=== PATIENT | female | born 1930 | race Caucasian/White ===

== ENCOUNTER → 2016-08-07 | Outpatient (CLI) | payer OTHER ==
[2016-08-07 12:04] LABS: Basophils # (auto) 0 uL; Basophils % (auto) 0.3 % (0.0-2.0); Eosinophils # (auto) 0.4 uL; Eosinophils % (auto) 4.6 % (0.0-7.0); Hematocrit 43.9 % (36.0-46.0); Hemoglobin 14.7 g/dL (12.2-16.2); Lymphocytes # (auto) 2.2 uL; Lymphocytes % (auto) 25.8 % (10.0-50.0); Mean Corpuscular Hemoglobin 31.8 pg (28.0-32.0); Mean Corpuscular Hgb Conc. 33.5 g/dL (32.0-36.0); Mean Corpuscular Volume 94.8 fL (80.0-100.0); Mean Platelet Volume 8.2 fL (7.4-10.4); Monocytes # (auto) 0.7 uL; Monocytes % (auto) 8.1 % (0.0-12.0); Neutrophils # (auto) 5.2 uL; Neutrophils % (auto) 61.2 % (37.0-80.0); Platelet Count (auto) 323 10^3/uL (140-450); Red Cell Distribution Width 12.6 % (11.6-16.0); White Blood Cell 8.4 10^3/uL (4.4-10.8)
[2016-08-07 12:39] LABS: Albumin 3.8 g/dL (3.4-5.0); BUN/Creatinine Ratio 14.7; Bilirubin, Total 0.5 mg/dL (0.2-1.0); Calcium 9.3 mg/dL (8.5-10.1); Total Protein 7.8 g/dL (6.4-8.2)
== END | disposition home or self-care (01) ==
LOC: LAB 11:40
PROVIDERS: ATTEND Internal Medicine
DX: Z12.10 Encounter for screening for malignant neoplasm of intestinal tract, unspecified (principal); Z00.00 Encounter for general adult medical examination without abnormal findings; E78.4 Other hyperlipidemia; I10 Essential (primary) hypertension
CPT/HCPCS: 36415; 80053; 80061; 82043; 82306; 83036; 84443; 85025

== ENCOUNTER → 2016-08-15 | Outpatient (CLI) | payer OTHER | END | disposition home or self-care (01) | LOC: LAB 14:33 | PROVIDERS: ATTEND Internal Medicine | DX: Z12.11 Encounter for screening for malignant neoplasm of colon (principal); I10 Essential (primary) hypertension; E11.9 Type 2 diabetes mellitus without complications; J44.9 Chronic obstructive pulmonary disease, unspecified | CPT/HCPCS: 82270 ==

== ENCOUNTER → 2016-11-14 | Outpatient (CLI) | payer OTHER | END | disposition home or self-care (01) | LOC: LAB 14:04 | PROVIDERS: ATTEND Internal Medicine | DX: F11.90 Opioid use, unspecified, uncomplicated (principal); E03.9 Hypothyroidism, unspecified; E55.9 Vitamin D deficiency, unspecified | CPT/HCPCS: 36415; 80307; 82306; 84439; 84443 ==

== ENCOUNTER → 2017-10-03 | Outpatient (CLI) | payer OTHER ==
[2017-10-03 16:22] LABS: Alcohol, Urine < 3.0 mg/dL (0-5); Amphetamine Screen, Urine NEGATIVE (NEGATIVE); Barbiturate Scree,Urine NEGATIVE (NEGATIVE); Benzodiazephine Screen, Urine NEGATIVE (NEGATIVE); Cannabinoid Screen, Urine NEGATIVE (NEGATIVE); Cocaine Screen, Urine NEGATIVE (NEGATIVE); Opiate Scree,Urine POSITIVE (NEGATIVE); Phencyclidine Screen, Urine NEGATIVE (NEGATIVE)
== END | disposition home or self-care (01) ==
LOC: LAB 14:54
PROVIDERS: ATTEND Anesthesiology Pain Medicine
DX: F11.90 Opioid use, unspecified, uncomplicated (principal)
CPT/HCPCS: 80307

== ENCOUNTER → 2017-11-11 | Outpatient (CLI) | payer OTHER ==
[2017-11-11 12:25] LABS: Basophils # (auto) 0 uL; Basophils % (auto) 0.6 % (0.0-2.0); Eosinophils # (auto) 0.3 uL; Eosinophils % (auto) 3.3 % (0.0-7.0); Hematocrit 42.9 % (36.0-46.0); Hemoglobin 14.6 g/dL (12.2-16.2); Lymphocytes # (auto) 2.2 uL; Lymphocytes % (auto) 25.9 % (10.0-50.0); Mean Corpuscular Hemoglobin 32.1 pg (28.0-32.0); Mean Corpuscular Volume 94.3 fL (80.0-100.0); Monocytes # (auto) 0.6 uL; Monocytes % (auto) 7.7 % (0.0-12.0); Neutrophils # (auto) 5.2 uL; Neutrophils % (auto) 62.5 % (37.0-80.0); Nucleated Red Blood Cells % 0.1 %; Platelet Count (auto) 227 10^3/uL (140-450); Red Blood Cells 4.55 10^6/uL (4.0-5.20); Red Cell Distribution Width 12.8 % (11.8-14.3); White Blood Cell 8.4 10^3/uL (4.4-10.8)
[2017-11-11 13:26] LABS: Albumin 3.6 g/dL (3.4-5.0); Bilirubin, Total 0.9 mg/dL (0.2-1.0); Calcium 9.5 mg/dL (8.5-10.1); Potassium 4.7 mmol/L (3.5-5.1); Total Protein 7.4 g/dL (6.4-8.2)
== END | disposition home or self-care (01) ==
LOC: LAB 11:44
PROVIDERS: ATTEND Internal Medicine
DX: Z12.11 Encounter for screening for malignant neoplasm of colon (principal); E11.22 Type 2 diabetes mellitus with diabetic chronic kidney disease; I12.9 Hypertensive chronic kidney disease with stage 1 through stage 4 chronic kidney disease, or unspecified chronic kidney disease; N18.9 Chronic kidney disease, unspecified; E78.5 Hyperlipidemia, unspecified; E03.9 Hypothyroidism, unspecified; J44.9 Chronic obstructive pulmonary disease, unspecified; Z79.891 Long term (current) use of opiate analgesic
CPT/HCPCS: 36415; 80053; 80061; 82043; 82270; 82306; 83036; 84443; 85025

== ENCOUNTER → 2018-03-26 | Outpatient (CLI) | payer OTHER ==
[2018-03-26 13:28] LABS: Albumin 3.8 g/dL (3.4-5.0); BUN/Creatinine Ratio 15.8; Calcium 9.5 mg/dL (8.5-10.1); Potassium 4.6 mmol/L (3.5-5.1)
[2018-03-26 13:34] LABS: Bilirubin, Total 0.7 mg/dL (0.2-1.0); Total Protein 7.9 g/dL (6.4-8.2)
== END | disposition home or self-care (01) ==
LOC: LAB 11:27
PROVIDERS: ATTEND Internal Medicine
DX: Z12.11 Encounter for screening for malignant neoplasm of colon (principal); E78.5 Hyperlipidemia, unspecified
CPT/HCPCS: 36415; 80053; 80061; 83036

== ENCOUNTER → 2019-01-02 | Outpatient (CLI) | payer OTHER ==
[2019-01-02 12:36] LABS: Basophils # (auto) 0.1 uL; Basophils % (auto) 0.6 % (0.0-2.0); Eosinophils # (auto) 0.8 uL; Eosinophils % (auto) 9.6 % (0.0-7.0); Hematocrit 38.9 % (36.0-46.0); Hemoglobin 13.5 g/dL (12.2-16.2); Lymphocytes # (auto) 2.4 uL; Lymphocytes % (auto) 29.7 % (10.0-50.0); Mean Corpuscular Hemoglobin 32.6 pg (28.0-32.0); Mean Corpuscular Hgb Conc. 34.6 g/dL (32.0-36.0); Mean Corpuscular Volume 94.5 fL (80.0-100.0); Monocytes # (auto) 0.9 uL; Monocytes % (auto) 11.2 % (0.0-12.0); Neutrophils % (auto) 48.9 % (37.0-80.0); Nucleated Red Blood Cells % 0.1 %; Platelet Count (auto) 257 10^3/uL (140-450); Red Blood Cells 4.12 10^6/uL (4.0-5.20); White Blood Cell 8.1 10^3/uL (4.4-10.8)
[2019-01-02 13:19] LABS: Potassium 3.8 mmol/L (3.5-5.1)
[2019-01-02 13:30] LABS: Albumin 3.5 g/dL (3.4-5.0); BUN/Creatinine Ratio 13.9; Bilirubin, Total 0.8 mg/dL (0.2-1.0); Calcium 9.1 mg/dL (8.5-10.1); Total Protein 7.1 g/dL (6.4-8.2)
== END | disposition home or self-care (01) ==
LOC: LAB 11:52
PROVIDERS: ATTEND Internal Medicine
DX: Z12.11 Encounter for screening for malignant neoplasm of colon (principal); I12.9 Hypertensive chronic kidney disease with stage 1 through stage 4 chronic kidney disease, or unspecified chronic kidney disease; E11.22 Type 2 diabetes mellitus with diabetic chronic kidney disease; N18.9 Chronic kidney disease, unspecified; E78.5 Hyperlipidemia, unspecified
CPT/HCPCS: 36415; 80053; 80061; 82043; 82274; 82306; 83036; 84443; 85025

== ENCOUNTER → 2019-01-13 | Outpatient (CLI) | payer OTHER ==
[2019-01-13 18:33] LABS: Free T4 (Free Thyroxine) 1.07 ng/dL (0.89-1.76); T3 Total 0.79 ng/mL (0.60-1.81)
[2019-01-13 18:34] LABS: Free T3 2.37 pg/mL (2.3-4.2)
== END | disposition home or self-care (01) ==
LOC: LAB 14:31
PROVIDERS: ATTEND Internal Medicine
DX: E03.9 Hypothyroidism, unspecified (principal)
CPT/HCPCS: 84439; 84480; 84481

== ENCOUNTER 2020-09-20 12:50 | Inpatient (IN) | payer OTHER ==
[~2020-09-20] VITALS: Ht 149.9 cm; Wt 76.2 kg
[2020-09-20] MEDS ORDERED: ASPirin 81 mg TAB PO ONE (13:00)
[2020-09-20 14:00] LABS: Basophils # (auto) 0 10 ^3/uL (0-0.2); Basophils % (auto) 0.3 % (0.0-2.0); Eosinophils # (auto) 0.4 10 ^3/uL (0-0.8); Eosinophils % (auto) 3.2 % (0.0-7.0); Hematocrit 42.7 % (36.0-46.0); Hemoglobin 14.5 g/dL (12.2-16.2); Lymphocytes % (auto) 16.4 % (10.0-50.0); Mean Corpuscular Hemoglobin 31.6 pg (28.0-32.0); Mean Corpuscular Volume 92.9 fL (80.0-100.0); Monocytes # (auto) 1.1 10 ^3/uL (0-1.3); Monocytes % (auto) 9.5 % (0.0-12.0); Neutrophils # (auto) 8.4 10 ^3/uL (1.6-8.6); Neutrophils % (auto) 70.6 % (37.0-80.0); Nucleated Red Blood Cells % 0.2 %; Red Cell Distribution Width 12.9 % (11.8-14.3); White Blood Cell 11.9 10^3/uL (4.4-10.8)
[2020-09-20 14:14] LABS: Albumin 3.8 g/dL (3.4-5.0); Anion Gap 10 (5-15); Blood Urea Nitrogen 14 mg/dL (7-18); Calcium 9.3 mg/dL (8.5-10.1); Carbon Dioxide 26 mmol/L (21-32); Chloride 100 mmol/L (98-107); Glucose 146 mg/dL (74-106); Potassium 3.6 mmol/L (3.5-5.1); Sodium 136 mmol/L (136-145)
[2020-09-20 14:16] LABS: Alanine Aminotransferase 12 U/L (13-56); Aspartate Aminotransferase 18 U/L (15-37); BUN/Creatinine Ratio 15.9; GFR African American 78 mL/min; GFR Non-African American 65 mL/min; INR 1.06 (0.9-1.15); Partial Thromboplastin Time 26.8 sec (23.0-31.2)
[2020-09-20 14:20] LABS: Alkaline Phosphatase 95 U/L (45-117); Bilirubin, Total 0.9 mg/dL (0.2-1.0); Total Protein 7.9 g/dL (6.4-8.2)
[2020-09-20] MEDS ORDERED: hydrALAZINE HCL 20 MG/ML VL IV PRN (16:00)
[2020-09-20] MEDS ORDERED: ACETAMINOPHEN 500 MG TAB PO PRN (16:00)
[2020-09-20] MEDS ORDERED: NITROGLYCERIN 0.4 MG SL TAB SL PRN (16:00)
[2020-09-20] MEDS ORDERED: KETOROLAC TROMETH 30 MG/ML 1ML VIAL IV ONE (16:00)
[2020-09-20] MEDS ORDERED: HYDROcodone-ACET 5/325MG TAB PO PRN (16:00)
[2020-09-20] MEDS ORDERED: ONDANSETRON HCL 4 MG/2 ML VIAL IV PRN (16:00)
[2020-09-20] MEDS ORDERED: MORPHINE SULFATE INJECTION 2 MG/ML SYRG IV PRN ×2 (16:00)
[2020-09-20 16:02] LABS: Urine Bacteria FEW /hpf (None Seen); Urine Blood Negative /uL (Negative); Urine WBC 1 /hpf (0 - 5)
[2020-09-20 21:10] VITALS: BP 164/75
[2020-09-20 21:30] VITALS: BP 164/75
[2020-09-20] MEDS: METOPROLOL TARTRATE 25 MG TAB PO SCH (22:00)
[2020-09-21 05:05] VITALS: BP 172/76
[2020-09-21] MEDS ORDERED: LEVO100C3 PO (07:18)
[2020-09-21] MEDS ORDERED: LOSA-39 PO ×2 (07:18)
[2020-09-21] MEDS ORDERED: LEVO88TA4 PO (07:18)
[2020-09-21] MEDS ORDERED: CHOL50007 PO (07:18)
[2020-09-21 08:00] VITALS: BP 158/83
[2020-09-21] MEDS ORDERED: ADENOSINE 64 MG in GIVE UN-DILUTED 0 ML IV STA (08:22)
[2020-09-21 09:00] VITALS: BP 158/83
[2020-09-21] MEDS ORDERED: FAMOTIDINE 20 MG TAB PO SCH (10:00)
[2020-09-21] MEDS ORDERED: ASPirin-EC 81 mg tab PO SCH (10:00)
[2020-09-21] MEDS ORDERED: LISINOPRIL 10 MG TAB PO SCH (10:00)
[2020-09-21] MEDS: METOPROLOL TARTRATE 25 MG TAB PO SCH (12:12)
[2020-09-21 13:00] VITALS: BP 156/72
[2020-09-21 13:01] LABS: Cholesterol 111 mg/dL (< 200); HDL Cholesterol 55 mg/dL (40-59); LDL Cholesterol 45 mg/dL (< 100); Triglycerides 100 mg/dL (< 150)
[2020-09-21] MEDS ORDERED: HYDR25TA5 PO (13:42)
[2020-09-21] MEDS ORDERED: MET50T PO (13:42)
[2020-09-21] MEDS ORDERED: AML5T PO (13:42)
[2020-09-21 16:57] VITALS: BP 144/66
[2020-09-21 17:29] VITALS: BP 149/86
== END 2020-09-21 21:27 | disposition home or self-care (01) | DRG 305 ==
LOC: ER 12:50 → TELE 15:53 → TELE-WESTW 20:53
PROVIDERS: ADMIT Nurse Practitioner Acute Care; ATTEND Internal Medicine
DX: I16.9 Hypertensive crisis, unspecified (principal); I24.9 Acute ischemic heart disease, unspecified; E66.9 Obesity, unspecified; D72.829 Elevated white blood cell count, unspecified; E03.9 Hypothyroidism, unspecified; E78.5 Hyperlipidemia, unspecified; I10 Essential (primary) hypertension; Z20.822 Contact with and (suspected) exposure to COVID-19; M25.569 Pain in unspecified knee; G89.29 Other chronic pain; Z90.49 Acquired absence of other specified parts of digestive tract; Z82.3 Family history of stroke; Z79.899 Other long term (current) drug therapy
CPT/HCPCS: 36415; 71045; 71250; 78452; 80053; 80061; 81001; 82533; 83036; 83735; 83880; 84443; 84484; 85025; 85379; 85610; 85730; 86141; 87426; 93005; 93017; 93306; 93976; 96374; G0378; J0153; J1885

== ENCOUNTER 2020-10-10 16:44 | Emergency (ER) | payer OTHER ==
[~2020-10-10] VITALS: Ht 152.4 cm; Wt 86.2 kg
[~2020-10-10 16:44] MED LIST: AML5T PO; CHOL50007 PO; HYDR25TA5 PO; LEVO100C3 PO; LEVO88TA4 PO; LOSA-39 PO; MET50T PO
[2020-10-10] MEDS ORDERED: SODIUM CHLORIDE 0.9% 500 ML IVB ONE (17:30)
[2020-10-10 18:54] LABS: Basophils # (auto) 0.1 10 ^3/uL (0-0.2); Basophils % (auto) 0.4 % (0.0-2.0); Eosinophils # (auto) 0.3 10 ^3/uL (0-0.8); Eosinophils % (auto) 2.4 % (0.0-7.0); Lymphocytes # (auto) 1.9 10 ^3/uL (0.4-5.4); Lymphocytes % (auto) 14.8 % (10.0-50.0); Mean Corpuscular Hemoglobin 31.8 pg (28.0-32.0); Mean Corpuscular Hgb Conc. 34.7 g/dL (32.0-36.0); Mean Corpuscular Volume 91.6 fL (80.0-100.0); Monocytes # (auto) 0.9 10 ^3/uL (0-1.3); Monocytes % (auto) 6.8 % (0.0-12.0); Neutrophils # (auto) 9.8 10 ^3/uL (1.6-8.6); Neutrophils % (auto) 75.6 % (37.0-80.0); Nucleated Red Blood Cells % 0.2 %; Platelet Count (auto) 297 10^3/uL (140-450); Red Blood Cells 5.03 10^6/uL (4.0-5.20); Red Cell Distribution Width 12.9 % (11.8-14.3); White Blood Cell 12.9 10^3/uL (4.4-10.8)
[2020-10-10 19:07] LABS: Albumin 4.2 g/dL (3.4-5.0); Anion Gap 11 (5-15); Blood Urea Nitrogen 21 mg/dL (7-18); Calcium 9.8 mg/dL (8.5-10.1); Carbon Dioxide 25 mmol/L (21-32); Chloride 93 mmol/L (98-107); Glucose 169 mg/dL (74-106); Magnesium 2.1 mg/dL (1.6-2.6); Potassium 3.6 mmol/L (3.5-5.1); Sodium 129 mmol/L (136-145)
[2020-10-10 19:15] LABS: Alanine Aminotransferase 21 U/L (13-56); Alkaline Phosphatase 117 U/L (45-117); Aspartate Aminotransferase 20 U/L (15-37); BUN/Creatinine Ratio 19.3; Bilirubin, Total 0.9 mg/dL (0.2-1.0); GFR African American 61 mL/min; GFR Non-African American 50 mL/min; Total Protein 8.7 g/dL (6.4-8.2)
[2020-10-10 20:27] LABS: Urine Bacteria FEW /hpf (None Seen); Urine Blood Negative /uL (Negative); Urine Mucus FEW (None Seen); Urine Specific Gravity 1.018 (1.001-1.035); Urine WBC 2 /hpf (0 - 5)
[2020-10-10 20:49] LABS: Alcohol, Urine < 3.0 mg/dL (0-10); Amphetamine Screen, Urine NEGATIVE (NEGATIVE); Barbiturate Scree,Urine NEGATIVE (NEGATIVE); Benzodiazephine Screen, Urine NEGATIVE (NEGATIVE); Cannabinoid Screen, Urine NEGATIVE (NEGATIVE); Cocaine Screen, Urine NEGATIVE (NEGATIVE); Opiate Scree,Urine POSITIVE (NEGATIVE); Phencyclidine Screen, Urine NEGATIVE (NEGATIVE)
[2020-10-10 21:00] VITALS: BP 147/68
== END 2020-10-10 21:15 | disposition home or self-care (01) ==
LOC: EDBD 16:44 → ER 16:44
DX: N39.0 Urinary tract infection, site not specified (principal); R55 Syncope and collapse; R41.0 Disorientation, unspecified; E03.9 Hypothyroidism, unspecified; I10 Essential (primary) hypertension; E78.5 Hyperlipidemia, unspecified; Z79.899 Other long term (current) drug therapy; Z90.49 Acquired absence of other specified parts of digestive tract; Z98.890 Other specified postprocedural states
CPT/HCPCS: 36415; 70450; 71045; 80053; 80307; 81001; 83735; 84484; 85025; 93005; 96360; 96361

== ENCOUNTER 2020-10-15 01:50 | Inpatient (IN) | payer OTHER ==
[~2020-10-15] VITALS: Ht 152.4 cm; Wt 76.6 kg
[2020-10-15 03:27] LABS: Albumin 3.9 g/dL (3.4-5.0); Anion Gap 13 (5-15); BUN/Creatinine Ratio 21.8; Blood Urea Nitrogen 19 mg/dL (7-18); Calcium 8.9 mg/dL (8.5-10.1); Carbon Dioxide 24 mmol/L (21-32); Chloride 80 mmol/L (98-107); GFR African American 79 mL/min; GFR Non-African American 65 mL/min; Glucose 163 mg/dL (74-106); Magnesium 1.6 mg/dL (1.6-2.6); Potassium 3.1 mmol/L (3.5-5.1)
[2020-10-15 03:30] LABS: Lactic Acid w/Reflex 2.4 mmol/L (0.4-2.0)
[2020-10-15 03:32] LABS: Alanine Aminotransferase 19 U/L (13-56); Alkaline Phosphatase 106 U/L (45-117); Aspartate Aminotransferase 21 U/L (15-37)
[2020-10-15 03:38] LABS: Basophils # (auto) 0 10 ^3/uL (0-0.2); Basophils % (auto) 0.2 % (0.0-2.0); Eosinophils # (auto) 0.1 10 ^3/uL (0-0.8); Eosinophils % (auto) 0.5 % (0.0-7.0); Hematocrit 44.9 % (36.0-46.0); Lymphocytes % (auto) 13.2 % (10.0-50.0); Mean Corpuscular Hemoglobin 31.2 pg (28.0-32.0); Mean Corpuscular Hgb Conc. 35.6 g/dL (32.0-36.0); Mean Corpuscular Volume 87.6 fL (80.0-100.0); Monocytes # (auto) 1.4 10 ^3/uL (0-1.3); Monocytes % (auto) 9.4 % (0.0-12.0); Neutrophils # (auto) 11.5 10 ^3/uL (1.6-8.6); Neutrophils % (auto) 76.7 % (37.0-80.0); Nucleated Red Blood Cells % 0.3 %; Platelet Count (auto) 328 10^3/uL (140-450); Red Blood Cells 5.13 10^6/uL (4.0-5.20); Red Cell Distribution Width 12.2 % (11.8-14.3); White Blood Cell 15.1 10^3/uL (4.4-10.8)
[2020-10-15 03:39] LABS: Sodium 117 mmol/L (136-145)
[2020-10-15 04:11] LABS: Urine Bacteria NONE SEEN /hpf (None Seen); Urine Blood Negative /uL (Negative); Urine Hyaline Cast MOD /lpf (0 - 2); Urine Mucus FEW (None Seen); Urine WBC 16 /hpf (0 - 5)
[2020-10-15] MEDS ORDERED: SODIUM CHL 3% 500 ML IV SCH (04:30)
[2020-10-15] MEDS ORDERED: ONDANSETRON HCL 4 MG/2 ML VIAL IV ONE (04:45)
[2020-10-15] MEDS ORDERED: SODIUM CHL 3% 500 ML IV ONE ×2 (05:15→06:15)
[2020-10-15] MEDS ORDERED: NITROGLYCERIN 0.4 MG SL TAB SL PRN (06:15)
[2020-10-15] MEDS ORDERED: MORPHINE SULF INJ 2 MG/ML SYRINGE 1ML IV PRN (06:15)
[2020-10-15] MEDS ORDERED: ONDANSETRON HCL 4 MG/2 ML VIAL IV PRN (06:15)
[2020-10-15] MEDS ORDERED: ACETAMINOPHEN 325 MG TAB PO PRN (06:15)
[2020-10-15] MEDS ORDERED: POTASSIUM CHL 20 Meq TABLET PO ONE (06:15)
[2020-10-15] MEDS: LEVOTHYROXINE SODIUM 88 MCG TAB PO SCH (07:00)
[2020-10-15] MEDS: cefTRIAXone 1GM/50ML D5W 50 ML IV SCH (08:06)
[2020-10-15 08:16] LABS: Amylase 39 U/L (25-115); Lipase 80 U/L (73-393)
[2020-10-15] MEDS ORDERED: FAMOTIDINE 20 MG TAB PO SCH (10:00)
[2020-10-15] MEDS: METOPROLOL TARTRATE 50 MG TAB PO SCH ×2 (10:09→22:01)
[2020-10-15] MEDS: amLODIPine BESYLATE 5 MG TAB PO SCH (10:09)
[2020-10-15 12:48] VITALS: BP 138/68
[2020-10-15 13:00] VITALS: BP 144/69
[2020-10-15 17:00] VITALS: BP 143/64
[2020-10-15] MEDS: SUCRALFATE 1 GM/10 ML ORAL SUSP PO SCH ×2 (17:10→22:01)
[2020-10-15 22:00] VITALS: BP 148/59
[2020-10-15] MEDS: PANTOPRAZOLE 40 MG TAB PO SCH (22:00)
[2020-10-16] MEDS: HYDROcodone-ACET 5/325MG TAB PO PRN ×2 (02:37→13:55)
[2020-10-16 05:00] VITALS: BP 140/56
[2020-10-16 05:52] LABS: Basophils # (auto) 0 10 ^3/uL (0-0.2); Basophils % (auto) 0.3 % (0.0-2.0); Monocytes # (auto) 1.7 10 ^3/uL (0-1.3); Neutrophils # (auto) 8.1 10 ^3/uL (1.6-8.6); Nucleated Red Blood Cells % 0.1 %
[2020-10-16 05:57] LABS: Eosinophils # (auto) 0.3 10 ^3/uL (0-0.8); Hematocrit 37.4 % (36.0-46.0); Hemoglobin 13.4 g/dL (12.2-16.2); Lymphocytes # (auto) 2.5 10 ^3/uL (0.4-5.4); Lymphocytes % (auto) 20.1 % (10.0-50.0); Mean Corpuscular Hemoglobin 31.4 pg (28.0-32.0); Mean Corpuscular Hgb Conc. 35.7 g/dL (32.0-36.0); Monocytes % (auto) 13.3 % (0.0-12.0); Neutrophils % (auto) 64.3 % (37.0-80.0); Platelet Count (auto) 248 10^3/uL (140-450); Red Blood Cells 4.25 10^6/uL (4.0-5.20); Red Cell Distribution Width 12.2 % (11.8-14.3); White Blood Cell 12.6 10^3/uL (4.4-10.8)
[2020-10-16 06:11] LABS: Potassium 3.6 mmol/L (3.5-5.1)
[2020-10-16 06:19] LABS: BUN/Creatinine Ratio 22.7; Calcium 8.4 mg/dL (8.5-10.1)
[2020-10-16] MEDS: SUCRALFATE 1 GM/10 ML ORAL SUSP PO SCH ×4 (06:49→22:10)
[2020-10-16] MEDS: LEVOTHYROXINE SODIUM 88 MCG TAB PO SCH (06:49)
[2020-10-16] MEDS: cefTRIAXone 1GM/50ML D5W 50 ML IV SCH (08:47)
[2020-10-16 09:00] VITALS: BP 118/50
[2020-10-16] MEDS: PANTOPRAZOLE 40 MG TAB PO SCH ×2 (09:49→22:10)
[2020-10-16] MEDS: METOPROLOL TARTRATE 50 MG TAB PO SCH ×2 (09:50→22:11)
[2020-10-16] MEDS: amLODIPine BESYLATE 5 MG TAB PO SCH (09:50)
[2020-10-16] MEDS ORDERED: FLORASTOR (S. BOULARDII) 250 MG CAP PO ONE (11:45)
[2020-10-16 13:00] VITALS: BP 109/41
[2020-10-16] MEDS: metroNIDAZOLE 500MG/100ML 100 ML IV SCH ×2 (13:25→22:16)
[2020-10-16 17:00] VITALS: BP 127/51
[2020-10-16 22:00] VITALS: BP 127/57
[2020-10-17] VITALS (7 sets, daily range): BP systolic 113–142; BP diastolic 50–64
[2020-10-17] MEDS: HYDROcodone-ACET 5/325MG TAB PO PRN ×2 (02:36→08:30)
[2020-10-17] MEDS: LEVOTHYROXINE SODIUM 88 MCG TAB PO SCH (06:18)
[2020-10-17] MEDS: SUCRALFATE 1 GM/10 ML ORAL SUSP PO SCH ×4 (06:19→21:30)
[2020-10-17] MEDS: metroNIDAZOLE 500MG/100ML 100 ML IV SCH ×3 (06:19→21:30)
[2020-10-17 06:41] LABS: Basophils # (auto) 0 10 ^3/uL (0-0.2); Basophils % (auto) 0.3 % (0.0-2.0); Eosinophils # (auto) 0.7 10 ^3/uL (0-0.8); Hematocrit 38.6 % (36.0-46.0); Hemoglobin 13.7 g/dL (12.2-16.2); Lymphocytes # (auto) 2.6 10 ^3/uL (0.4-5.4); Lymphocytes % (auto) 23.1 % (10.0-50.0); Mean Corpuscular Hemoglobin 31.5 pg (28.0-32.0); Mean Corpuscular Hgb Conc. 35.4 g/dL (32.0-36.0); Mean Corpuscular Volume 88.9 fL (80.0-100.0); Monocytes # (auto) 1.3 10 ^3/uL (0-1.3); Monocytes % (auto) 11.2 % (0.0-12.0); Neutrophils # (auto) 6.8 10 ^3/uL (1.6-8.6); Neutrophils % (auto) 59.4 % (37.0-80.0); Platelet Count (auto) 250 10^3/uL (140-450); Red Blood Cells 4.34 10^6/uL (4.0-5.20); Red Cell Distribution Width 12.3 % (11.8-14.3); White Blood Cell 11.4 10^3/uL (4.4-10.8)
[2020-10-17 07:12] LABS: BUN/Creatinine Ratio 19.3; Potassium 3.7 mmol/L (3.5-5.1)
[2020-10-17] MEDS: cefTRIAXone 1GM/50ML D5W 50 ML IV SCH (08:30)
[2020-10-17] MEDS: PANTOPRAZOLE 40 MG TAB PO SCH ×2 (09:59→21:31)
[2020-10-17] MEDS: FLORASTOR (S. BOULARDII) 250 MG CAP PO SCH (10:00)
[2020-10-17] MEDS: METOPROLOL TARTRATE 50 MG TAB PO SCH ×2 (10:00→21:30)
[2020-10-18] MEDS: HYDROcodone-ACET 5/325MG TAB PO PRN ×3 (00:09→23:43)
[2020-10-18 05:20] VITALS: BP 145/63
[2020-10-18] MEDS: metroNIDAZOLE 500MG/100ML 100 ML IV SCH ×3 (06:01→21:34)
[2020-10-18] MEDS: SUCRALFATE 1 GM/10 ML ORAL SUSP PO SCH ×4 (06:08→21:34)
[2020-10-18] MEDS: LEVOTHYROXINE SODIUM 88 MCG TAB PO SCH (06:08)
[2020-10-18 09:00] VITALS: BP 127/69
[2020-10-18] MEDS: cefTRIAXone 1GM/50ML D5W 50 ML IV SCH (09:24)
[2020-10-18] MEDS: FLORASTOR (S. BOULARDII) 250 MG CAP PO SCH (09:24)
[2020-10-18] MEDS: PANTOPRAZOLE 40 MG TAB PO SCH ×2 (09:25→21:34)
[2020-10-18] MEDS: METOPROLOL TARTRATE 50 MG TAB PO SCH ×2 (09:25→21:35)
[2020-10-18] MEDS ORDERED: SODIUM CHLORIDE 0.9% 1,000 ML IV ONE (09:45)
[2020-10-18] MEDS ORDERED: LOPERAMIDE HCL 2 MG CAP PO PRN (11:30)
[2020-10-18 12:52] VITALS: BP 115/57
[2020-10-18 17:00] VITALS: BP 135/67
[2020-10-18 20:00] VITALS: BP 141/64
[2020-10-18 22:00] VITALS: BP 122/75
[2020-10-19 05:00] VITALS: BP 141/95
[2020-10-19 05:47] LABS: Calcium 8.9 mg/dL (8.5-10.1); Potassium 3.6 mmol/L (3.5-5.1)
[2020-10-19 05:50] LABS: BUN/Creatinine Ratio 21.5
[2020-10-19] MEDS: metroNIDAZOLE 500MG/100ML 100 ML IV SCH (06:02)
[2020-10-19] MEDS: SUCRALFATE 1 GM/10 ML ORAL SUSP PO SCH ×2 (06:03→11:15)
[2020-10-19] MEDS: LEVOTHYROXINE SODIUM 88 MCG TAB PO SCH (06:03)
[2020-10-19 09:00] VITALS: BP 133/71
[2020-10-19] MEDS ORDERED: SUCR1TAB22 OR (09:16)
[2020-10-19] MEDS ORDERED: PANT40TA2 PO (09:16)
[2020-10-19] MEDS ORDERED: ONDANSETRON ODT 4 MG TAB PO PRN (09:45)
[2020-10-19] MEDS: FLORASTOR (S. BOULARDII) 250 MG CAP PO SCH (10:12)
[2020-10-19] MEDS: METOPROLOL TARTRATE 50 MG TAB PO SCH (10:13)
[2020-10-19] MEDS: PANTOPRAZOLE 40 MG TAB PO SCH (10:13)
[2020-10-19 13:00] VITALS: BP 143/86
[2020-10-19 15:55] VITALS: BP 143/86
[2020-10-19 17:00] VITALS: BP 148/54
== END 2020-10-19 17:50 | disposition home or self-care (01) | DRG 690 ==
LOC: ER 01:50 → TELE 06:13 → TELE-CENTR 12:37
PROVIDERS: ADMIT Nurse Practitioner; ATTEND Internal Medicine
DX: N39.0 Urinary tract infection, site not specified (principal); E87.1 Hypo-osmolality and hyponatremia; K86.1 Other chronic pancreatitis; E86.0 Dehydration; E87.6 Hypokalemia; E03.9 Hypothyroidism, unspecified; I10 Essential (primary) hypertension; Z20.822 Contact with and (suspected) exposure to COVID-19; Z80.9 Family history of malignant neoplasm, unspecified; Z82.49 Family history of ischemic heart disease and other diseases of the circulatory system; Z90.49 Acquired absence of other specified parts of digestive tract
CPT/HCPCS: 36415; 74176; 80048; 80053; 81001; 82150; 82270; 83605; 83690; 83735; 83880; 84295; 84484; 85025; 87040; 87045; 87081; 87086; 87426; 87427; 87493; 93005; 96361; 96365; 96375; 96376; 99291; G0378; J0696; J2405; J3490

== ENCOUNTER → 2020-10-26 | Outpatient (CLI) | payer OTHER ==
[~2020-10-26] MED LIST changes: -HYDR25TA5 PO; +PANT40TA2 PO; +SUCR1TAB22 OR
[2020-10-26 13:10] LABS: BUN/Creatinine Ratio 21.1; Calcium 8.9 mg/dL (8.5-10.1)
== END | disposition home or self-care (01) ==
LOC: LAB 11:37
PROVIDERS: ATTEND Internal Medicine
DX: E87.1 Hypo-osmolality and hyponatremia (principal)
CPT/HCPCS: 36415; 80048

== ENCOUNTER → 2022-03-29 | Outpatient (CLI) | payer OTHER ==
[2022-03-29 12:16] LABS: Basophils # (auto) 0 10 ^3/uL (0-0.2); Basophils % (auto) 0.3 % (0.0-2.0); Eosinophils # (auto) 0.4 10 ^3/uL (0-0.8); Eosinophils % (auto) 4.5 % (0.0-7.0); Hematocrit 41.8 % (36.0-46.0); Hemoglobin 13.9 g/dL (12.2-16.2); Lymphocytes # (auto) 2.2 10 ^3/uL (0.4-5.4); Lymphocytes % (auto) 24.7 % (10.0-50.0); Mean Corpuscular Hemoglobin 30.8 pg (28.0-32.0); Mean Corpuscular Hgb Conc. 33.3 g/dL (32.0-36.0); Mean Corpuscular Volume 92.6 fL (80.0-100.0); Monocytes # (auto) 0.7 10 ^3/uL (0-1.3); Monocytes % (auto) 7.9 % (0.0-12.0); Neutrophils # (auto) 5.7 10 ^3/uL (1.6-8.6); Neutrophils % (auto) 62.6 % (37.0-80.0); Red Blood Cells 4.51 10^6/uL (4.0-5.20); Red Cell Distribution Width 12.7 % (11.8-14.3); White Blood Cell 9.1 10^3/uL (4.4-10.8)
[2022-03-29 13:15] LABS: Sodium 143 mmol/L (136-145)
[2022-03-29 13:16] LABS: Alanine Aminotransferase 14 U/L (13-56); Albumin 3.6 g/dL (3.4-5.0); Alkaline Phosphatase 120 U/L (45-117); Anion Gap 9 (5-15); Aspartate Aminotransferase 14 U/L (15-37); BUN/Creatinine Ratio 15.7; Bilirubin, Total 0.6 mg/dL (0.2-1.0); Blood Urea Nitrogen 14 mg/dL (7-18); Calcium 9.2 mg/dL (8.5-10.1); Carbon Dioxide 28 mmol/L (21-32); Chloride 106 mmol/L (98-107); Cholesterol 130 mg/dL (< 200); GFR African American 77 mL/min; GFR Non-African American 63 mL/min; Glucose 140 mg/dL (74-106); HDL Cholesterol 66 mg/dL (40-59); LDL Cholesterol 56 mg/dL (< 100); Potassium 4.5 mmol/L (3.5-5.1); Total Protein 6.9 g/dL (6.4-8.2); Triglycerides 136 mg/dL (< 150)
== END | disposition home or self-care (01) ==
LOC: LAB 11:50
PROVIDERS: ATTEND Internal Medicine
DX: Z00.00 Encounter for general adult medical examination without abnormal findings (principal); Z12.11 Encounter for screening for malignant neoplasm of colon; E11.69 Type 2 diabetes mellitus with other specified complication; E78.5 Hyperlipidemia, unspecified; E03.8 Other specified hypothyroidism
CPT/HCPCS: 36415; 80053; 80061; 82043; 83036; 84439; 84443; 85025

== ENCOUNTER → 2022-04-12 | Outpatient (CLI) | payer OTHER | END | disposition home or self-care (01) | LOC: LAB 07:07 | PROVIDERS: ATTEND Internal Medicine | DX: Z00.00 Encounter for general adult medical examination without abnormal findings (principal); Z12.11 Encounter for screening for malignant neoplasm of colon; E78.5 Hyperlipidemia, unspecified; E11.69 Type 2 diabetes mellitus with other specified complication | CPT/HCPCS: 82274 ==

== ENCOUNTER → 2022-06-05 | Outpatient (CLI) | payer OTHER | END | disposition home or self-care (01) | LOC: LAB 12:21 | PROVIDERS: ATTEND Internal Medicine | DX: K92.1 Melena (principal) | CPT/HCPCS: 82274 ==